=== PATIENT | male | born 1940 | race Caucasian/White ===

== ENCOUNTER 2023-07-22 11:04 | Emergency (ER) | payer BC ==
[~2023-07-22] VITALS: Ht 165.1 cm; Wt 84.1 kg
[2023-07-22 13:17] VITALS: BP 104/74; PULSE 88; RESP 16; TEMP 98.9; O2SAT 93
== END 2023-07-22 13:19 | disposition home or self-care (01) ==
LOC: ER 11:04
DX: J22 Unspecified acute lower respiratory infection (principal); Z20.822 Contact with and (suspected) exposure to COVID-19
CPT/HCPCS: 36415; 71046; 87811; 99284